=== PATIENT | female | born 1960 | race Caucasian/White ===

== ENCOUNTER 2024-10-09 06:53 | Day surgery (SDC) | payer BC ==
[~2024-10-09 06:53] MED LIST: Sodium Chloride 0.9% 10 ML Syringe FLUSH PRN; Sodium Chloride 0.9% 2.5 ML Syringe FLUSH PRN
[2024-10-09] MEDS ORDERED: Propofol 200 MG/20 ML SDV ONE (07:18)
[2024-10-09] MEDS: Lactated Ringers 1,000 ML IV SCH (07:31)
== END 2024-10-09 10:05 | disposition home or self-care (01) ==
LOC: MW.SDS 06:53
PROVIDERS: ATTEND Surgery
DX: Z12.11 Encounter for screening for malignant neoplasm of colon (principal); D12.2 Benign neoplasm of ascending colon; K57.30 Diverticulosis of large intestine without perforation or abscess without bleeding; E11.9 Type 2 diabetes mellitus without complications; Z79.899 Other long term (current) drug therapy; Z79.84 Long term (current) use of oral hypoglycemic drugs; Z91.018 Allergy to other foods; Z86.0100 Personal history of colon polyps, unspecified
CPT/HCPCS: 45380; J2003; J2704; J7120; 00811